=== PATIENT | male | born 2000 | race African-American/Black ===

== ENCOUNTER 2023-06-22 17:53 | Emergency (ER) | payer OTHER ==
[~2023-06-22] VITALS: Ht 167.6 cm; Wt 72.7 kg
[2023-06-22 18:10] VITALS: BP 134/81; TEMP 98.1
[2023-06-22] MEDS ORDERED: AMOXICILLIN 8751 TAB PO (18:31)
[2023-06-22 18:39] VITALS: PULSE 71
== END 2023-06-22 18:39 | disposition home or self-care (01) ==
LOC: COL.ER 17:53
DX: K05.20 Aggressive periodontitis, unspecified (principal); Z96.5 Presence of tooth-root and mandibular implants; Z87.891 Personal history of nicotine dependence